=== PATIENT | male | born 1975 ===

== ENCOUNTER 2025-01-20 10:35 | Emergency (ER) | payer OTHER ==
[~2025-01-20] VITALS: Ht 170.2 cm; Wt 79.5 kg
[2025-01-20 10:52] VITALS: BP 147/95; PULSE 100; RESP 18; TEMP 98.3; O2SAT 96
[2025-01-20] MEDS ORDERED: IBUPROFEN 600 MG TABLET PO ONE (13:00)
== END 2025-01-20 13:10 ==
LOC: EMS 10:44
DX: Z03.821 Encounter for observation for suspected ingested foreign body ruled out (principal)
CPT/HCPCS: 71250; 72192; 74150; 74176; 99284; Z7502; Z7610